=== PATIENT | female | born 1950 | race Caucasian/White ===

== ENCOUNTER 2024-09-26 11:49 | Day surgery (SDC) | payer MEDICARE ==
[~2024-09-26] VITALS: Ht 157.5 cm; Wt 95.9 kg
[~2024-09-26 11:49] MED LIST: ACYCLOVIR400 MG PO; ALPRAZOLAM0.25 MG PO; BUPROPION XL300 MG PO; CEFAZOLIN SODIUM 2 GM/20 ML SYR IV SCH; FOSAMAX70 MG PO; HYDROCHLOROTHIA25 MG PO; HYDROCODON-ACE1 EA10 PO; IBLOOD GLUCOSE TEST STRIP 1 EA TEST VI PRN; LACTATED RINGER'S 1,000 ML IV SCH; LEVOTHYROXINE150 MC1 PO; LIDOCAINE HCL 1% 5 ML SDV INJ ONE; LIPITOR20 MG PO; MAXALT MLT10 MG PO; MIDAZOLAM HCL 5 MG/5 ML VIAL IV PRN; MYSOLINE250 MG PO; OMEPRAZOLE40 MG PO; fentaNYL citrate 100 MCG/2 ML VIAL IV PRN
[2024-09-26 12:07] VITALS: BP 157/84
[2024-09-26] MEDS ORDERED: MIDAZOLAM HCL 5 MG/5 ML VIAL ONE (12:32)
[2024-09-26] MEDS ORDERED: fentaNYL citrate 100 MCG/2 ML VIAL ONE (12:33)
--- NOTE | 2024-09-26 14:29 | NUR ---
09/26/24 1429 Jacquelyn Beatty 1403 PT ARRIVED IN PACU AWAKE WITH NO C/O'S. ABD SOFT AND PASSING FLATUS. 1415 DR AT BEDSIDE. ALL QUESTIONS ANSWERED. 1425 SITTING UP IN BED SIPPING ON WATER AND JUICE.
[2024-09-26 14:33] VITALS: BP 115/77
--- NOTE | 2024-09-26 18:00 | OR ---
[facility] [address] [place], [place] [address] Signed DATE OF OPERATION: 09/26/2024 SURGEON: Patience Bonilla MD PREOPERATIVE DIAGNOSES: 1. Family history of colon cancer (brother). 2. History of polyps seven years ago ([place], [place]). POSTOPERATIVE DIAGNOSES: Small polyp of cecum and serpiginous sessile polyp of right colon. PROCEDURES: 1. Total colonoscopy to cecum and cold morcellation polypectomy x1. 2. Excision of proximal right colon polyp with mucosal lift technique and Endomark tattoo dye. ANESTHESIA: Intravenous sedation; fentanyl 150 mcg and Versed 10 mg. INDICATION: This 74-year-old white woman is a patient of BLANCA Ochoa. She underwent colonoscopy by me in 1998, which was normal. She since moved to the [place] area where she was undergoing surveillance colonoscopy at the [facility]. Her last colonoscopy was seven years ago where she had a single polyp. She does have family history of colon cancer in her brother at age 40 and a cousin who has had colon cancer as well. She is admitted at this time to undergo colonoscopy on the basis of her family history and prior history of polyp. She understands the risk of bleeding, infection, and perforation. FINDINGS: The prep was excellent. Complete colonoscopy was undertaken to the cecum. She had a small polyp of the cecum, which was excised with cold morcellation technique and a somewhat flat serpiginous elongated polyp of the right colon, excised with mucosal lift technique and hot snare and cold morcellation technique. There were no other findings of note. PROCEDURE IN DETAIL: The patient was brought to the endoscopy suite and placed in the lateral decubitus position, given intravenous sedation to the point of slurred speech and nystagmus. Digital rectal examination was normal. Electronically Signed By: PATIENCE BONILLA MD 09/26/24 [facility] PATIENT NAME: JASON NEWBERRY OPERATIVE REPORT DATE OF : 54 REPORT #: [id number] PHYSICIAN: PATIENCE BONILLA MD PCP: BRANDYN SAAB PA-C REPORT IS CONFIDENTIAL AND NOT TO BE RELEASED WITHOUT AUTHORIZATION [facility] [address] [place], [place] [address] Signed An Olympus video colonoscope was passed in the rectum and manipulated throughout the colon ultimately intubating the cecum itself. The ileocecal valve and appendiceal orifice were normal. There was a small adenomatous appearing polyp of the cecum, which was excised with cold morcellation technique. The scope was withdrawn and in the proximal ascending colon a somewhat subtle but real serpiginous polyp on the edge of the fold was noted, narrow band imaging confirmed its extent. A mucosal lift technique was used including a sclerotherapy needle with an Endo gladys tattoo dye allowing for mucosal lift and partial excision with hot snare polypectomy technique. Additional excision was undertaken with cold morcellation biopsy forceps. The scope was then withdrawn and remaining colon was normal including the rectum. Scope was removed and the patient was taken to the recovery room in good condition. CONCLUDING DIAGNOSIS: Polyps x2. PLAN: Recommend repeat colonoscopy in three years given family history and current findings of polyp, particularly the one of the right colon. Colonoscopy can be undertaken sooner if symptoms should warrant. Patience Bonilla MD JM/MODL /[id number] cc: BLANCA Ochoa Copies: ~ Electronically Signed By: PATIENCE BONILLA MD 09/26/24 1800 PATIENT NAME: JASON NEWBERRY OPERATIVE REPORT DATE OF : 54 REPORT #: [id number] PHYSICIAN: PATIENCE BONILLA MD PCP: BRANDYN SAAB PA-C REPORT IS CONFIDENTIAL AND NOT TO BE RELEASED WITHOUT AUTHORIZATION
--- NOTE | 2024-09-28 14:36 | PATH ---
[facility] [address] [place], [place] [address] Signed SPECIMEN(S): A CECUM COLON POLYP SPECIMEN(S): B PROXIMAL ASCENDING COLON POLYP SPECIMEN SOURCE: A. CECUM COLON POLYP B. PROXIMAL ASCENDING COLON POLYP CLINICAL HISTORY: Diarrhea, family history of polyps, history of polyps FINAL PATHOLOGIC DIAGNOSIS: A. Cecum, polypectomy: - Tubular adenoma B. Colon, proximal ascending, polypectomy: - Tubular adenoma BRP MICROSCOPIC EXAMINATION: Histologic sections of all submitted blocks are examined by light microscopy. These findings, together with the gross examination, support the pathologic diagnosis. GROSS DESCRIPTION: A. The specimen, labeled and designated "Christ, cecum colon polyp," is received in formalin and consists of six maldonado soft tissue fragments, ranging from 0.1-0.2 cm. Entirely submitted in (A1). B. The specimen, labeled and designated "Newberry, proximal ascending colon polyp," is received in formalin and consists of multiple maldonado soft tissue fragments, 0.1-0.4 cm. Entirely submitted in (B1). VB (under the direct supervision of a pathologist) The Gross Description was prepared using a voice recognition system. The report was reviewed for accuracy; however, sound-alike word errors, addition and/or deletions may occur. If there is any question about this report, please contact Client Services. ADDITIONAL NOTES: Immunohistochemical and/or in situ hybridization studies if performed in this case included appropriate positive controls that reacted as expected. This test was developed and its performance characteristics determined by [facility]. It has not been cleared or approved by the U.S. Food and Drug Administration. The FDA has determined that PATIENT NAME: JASON NEWBERRY PATHOLOGY DATE OF : 54 REPORT #: [id number] PHYSICIAN: HIREN VILLALTA PCP: BRANDYN SAAB PA-C REPORT IS CONFIDENTIAL AND NOT TO BE RELEASED WITHOUT AUTHORIZATION [facility] [address] [place], [place] [address], [place] [address] Signed such clearance or approval is not necessary. This test is used for clinical purposes. It should not be regarded as investigational or for research. [facility] is certified under the Clinical Laboratory Improvement Amendments of 1988 (CLIA) as qualified to perform high complexity clinical laboratory testing. PERFORMING LABORATORY: Technical component was performed by [facility], [address] [place] [address] (CLIA# [id number]). Professional interpretation was performed by [facility], [facility] (CLIA# [id number]). Diagnostician: Maycol Celaya MD Pathologist Electronically Signed 09/28/2024 Copies: ~ PATIENT NAME: JASON NEWBERRY PATHOLOGY DATE OF : 54 REPORT #: [id number] PHYSICIAN: HIREN VILLATLA PCP: BRANDYN SAAB PA-C REPORT IS CONFIDENTIAL AND NOT TO BE RELEASED WITHOUT AUTHORIZATION
== END 2024-09-26 14:45 | disposition home or self-care (01) ==
LOC: DS 11:49
PROVIDERS: ATTEND Surgery
PROC: 0DBF8ZZ Excision of Right Large Intestine, Via Natural or Artificial Opening Endoscopic (ICD-10-PCS; 2024-09-26)
PROC: 0DBH8ZZ Excision of Cecum, Via Natural or Artificial Opening Endoscopic (ICD-10-PCS; principal; 2024-09-26 13:00)
DX: D12.0 Benign neoplasm of cecum (principal); D12.2 Benign neoplasm of ascending colon; K63.5 Polyp of colon; K21.9 Gastro-esophageal reflux disease without esophagitis; E03.9 Hypothyroidism, unspecified; Z79.899 Other long term (current) drug therapy; Z80.0 Family history of malignant neoplasm of digestive organs; Z88.5 Allergy status to narcotic agent; Z90.711 Acquired absence of uterus with remaining cervical stump
CPT/HCPCS: 88305; 99153; G0500; J0690; J2250; J3010; J7121

== ENCOUNTER 2024-12-11 11:34 | Emergency (ER) | payer OTHER, MEDICARE ==
[~2024-12-11] VITALS: Ht 157.5 cm; Wt 88.9 kg
[~2024-12-11 11:34] MED LIST changes: -CEFAZOLIN SODIUM 2 GM/20 ML SYR IV SCH; -IBLOOD GLUCOSE TEST STRIP 1 EA TEST VI PRN; -LACTATED RINGER'S 1,000 ML IV SCH; -LIDOCAINE HCL 1% 5 ML SDV INJ ONE; -MIDAZOLAM HCL 5 MG/5 ML VIAL IV PRN; -fentaNYL citrate 100 MCG/2 ML VIAL IV PRN
--- OUTSIDE RECORDS SUMMARY | 2024-12-11 11:35 | XMS ---
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 Leonarda has no Care Guidelines for this patient. Rakan VISIT COUNT (12 MO.) 1 [facility] [place] [facility] 2 NOTE: Visits indicate total known visits. ED/UCC VISIT TRACKING (12 MO.) 12/11/2024 11:35 [facility] [place] TYPE: Emergency COMPLAINT: - FALL 11/16/2024 09:15 [facility] [place] TYPE: Emergency COMPLAINT: - Cough, unspecified - Shortness of breath DIAGNOSES: 1. Influenza due to other identified influenza virus with other respiratory manifestations 2. Cough, unspecified 3. Allergy status to narcotic agent 4. Other correction (current) drug therapy INPATIENT VISIT TRACKING (12 MO.) No inpatient visits to display in this time frame [email or web address]
[2024-12-11] MEDS ORDERED: BUPROPION XL150 MG PO (11:49)
[2024-12-11] MEDS ORDERED: BENZONATATE100 MG PO (11:49)
[2024-12-11 13:30] VITALS: BP 134/74
== END 2024-12-11 13:30 | disposition home or self-care (01) ==
LOC: ED 11:34
DX: S80.01XA Contusion of right knee, initial encounter (principal); W01.0XXA Fall on same level from slipping, tripping and stumbling without subsequent striking against object, initial encounter; E03.9 Hypothyroidism, unspecified; Z88.5 Allergy status to narcotic agent; Z79.899 Other long term (current) drug therapy; Z79.890 Hormone replacement therapy
CPT/HCPCS: 73560; 99283